=== PATIENT | female | born 1975 | race Caucasian/White ===

== ENCOUNTER 2020-08-13 07:48 | Outpatient (REF) | payer OTHER, SELFPAY ==
[2020-08-13 08:50] LABS: MANUAL DIFF FLAG NO
[2020-08-13 08:53] LABS: Basophils Absolute Auto 0.1 X10*3/uL (0.0-0.2); Basophils Percent Auto 0.6 % (0-2); Eosinophils Absolute Auto 0.3 X10*3/uL (0.0-0.4); Hematocrit 40.1 % (37-47); Hemoglobin 12.9 g/dl (12.0-16.0); Imm Gran Abs Auto 0.03 X10*3/uL (0.00-0.03); Imm Gran Pct Auto 0.4 % (0.0-0.4); Lymphocytes Absolute Auto 1.9 X10*3/uL (1.2-4.9); Lymphocytes Percent Auto 22.8 % (20-40); Mean Corpuscular HGB Conc 32.2 g/dl (31.0-35.0); Mean Corpuscular Volume 96.4 fL (80-98); Mean Platelet Volume 10.9 fL (9.4-12.3); Monocytes Absolute Auto 0.9 X10*3/uL (0.1-1.2); Monocytes Percent Auto 10.7 % (2-11); Neutrophils Absolute Auto 5.3 X10*3/uL (2.0-8.3); Neutrophils Percent Auto 62.5 % (45-73); Platelet Count 299 X10*3/uL (160-400); Red Blood Count 4.16 X10*6/uL (4.20-5.50); White Blood Count 8.5 X10*3/uL (4.8-10.8)
[2020-08-13 09:18] LABS: Anion Gap 11 (12-20); Blood Urea Nitrogen 8 mg/dL (9-16); Calcium 9.2 mg/dL (8.4-10.2); Carbon Dioxide 25 mmol/L (22-29); Chloride 105 mmol/L (96-108); Estimated Glomerular Filt Rate > 60; Glucose Random 91 mg/dL (60-115); Potassium 4.1 mmol/L (3.3-5.1); Sodium 137 mmol/L (135-145)
[2020-08-13 09:41] LABS: Free T4 (Free Thyroxine) 1.04 ng/dL (0.71-1.85); Thyroid Stimulating Hormone 0.93 uIU/mL (0.32-4.0); Vitamin D 25-OH Total 23.7 ng/mL (>30)
== END 2020-08-13 07:49 | disposition home or self-care (01) ==
LOC: HO.LAB 07:48
PROVIDERS: PCP Internal Medicine; Visit Provider Internal Medicine
DX: E55.9 Vitamin D deficiency, unspecified (principal); R63.5 Abnormal weight gain; F41.9 Anxiety disorder, unspecified
CPT/HCPCS: 36415; 80048; 82306; 84439; 84443; 85025

== ENCOUNTER 2020-11-14 09:08 | Outpatient (REF) | payer OTHER, SELFPAY ==
--- NOTE | ~2020-11-14 | MM_ITS ---
EXAMINATION: MM SCREENING DIGITAL BREAST TOMOSYNTHESIS, BILATERAL CLINICAL INFORMATION: Screening. Asymptomatic. The lifetime risk of breast cancer based on the Tyrer-Cuzick Model is 9%. COMPARISON: Mammography: 11/14/2019, 07/10/2018, 07/05/2018 (baseline) TECHNIQUE: Digital breast tomosynthesis is performed in both the craniocaudal and mediolateral oblique views along with computer-aided detection (CAD). Synthesized 2D images are generated from the tomosynthesis. FINDINGS: There are scattered areas of fibroglandular density (ACR BI-RADS breast composition Category b). There are no significant masses, abnormal calcifications, or other abnormalities. No developing density. The axilla and skin contours are unremarkable. MM/MM tomosynthesis screening BI IMPRESSION: No mammographic evidence of malignancy. ASSESSMENT: BI-RADS 1: Negative RECOMMENDATION: Routine annual mammography screening. This patient's information was entered into a reminder system with a target due date for their next mammogram.
== END 2020-11-14 09:09 | disposition home or self-care (01) ==
LOC: HO.MAMMO 09:08
PROVIDERS: PCP Internal Medicine; Visit Provider Internal Medicine
DX: Z12.31 Encounter for screening mammogram for malignant neoplasm of breast (principal)
CPT/HCPCS: 77063; 77067

== ENCOUNTER 2020-12-04 10:02 | Outpatient (REF) | payer OTHER, SELFPAY ==
[2020-12-04 14:09] LABS: Vitamin D 25-OH Total 27.5 ng/mL (>30)
== END 2020-12-04 10:03 | disposition home or self-care (01) ==
LOC: HO.10HDL 10:02
PROVIDERS: PCP Internal Medicine; Visit Provider Internal Medicine
DX: E55.9 Vitamin D deficiency, unspecified (principal)
CPT/HCPCS: 36415; 82306

== ENCOUNTER 2021-01-15 09:00 | Outpatient (REF) | payer OTHER, SELFPAY ==
[2021-01-15 15:25] LABS: CT PCR NOT DETECTED (Not Detect.); NG PCR NOT DETECTED (Not Detect.)
== END 2021-01-15 09:01 | disposition home or self-care (01) ==
LOC: HO.LAB 09:00
PROVIDERS: PCP Internal Medicine; Visit Provider Advanced Practice Midwife
DX: Z11.3 Encounter for screening for infections with a predominantly sexual mode of transmission (principal); Z20.2 Contact with and (suspected) exposure to infections with a predominantly sexual mode of transmission; F17.200 Nicotine dependence, unspecified, uncomplicated; Z71.6 Tobacco abuse counseling
CPT/HCPCS: 87491; 87591

== ENCOUNTER 2021-01-27 10:12 | Outpatient (REF) | payer OTHER, SELFPAY ==
--- NOTE | ~2021-01-27 | XR_ITS ---
EXAMINATION: XR LUMBOSACRAL SPINE CLINICAL INFORMATION: Low back pain. Rule out fracture. COMPARISON: Previous exam February 2013 TECHNIQUE: Three views of the lumbosacral spine. FINDINGS: Bone alignment is normal. No fracture or dislocation is seen. Disc spaces are normal. Paraspinal soft tissues are normal. XR/XR lumbar spine 2-3V IMPRESSION: Unremarkable examination.
== END 2021-01-27 10:13 | disposition home or self-care (01) ==
LOC: HO.XRAY 10:12
PROVIDERS: PCP Internal Medicine; Visit Provider Internal Medicine
DX: M54.50 Low back pain, unspecified (principal); Z91.81 History of falling
CPT/HCPCS: 72100

== ENCOUNTER 2021-04-23 11:00 | Outpatient (RCR) | payer OTHER, SELFPAY ==
--- NOTE | 2021-03-17 09:51 | MHC.PT.EP ---
[facility] [place] Office [place] Office [place] Office [address] Red Chiang [address] [phone] F: [phone] F: [phone] F: [phone] F: [phone] Physical Therapy Plan of Care Date of Evaluation: Date of Surgery: NA Diagnosis: L knee pain and giving out Assessment: Ronda is a 45 year old female referred to PT for L knee pain and giving out . Pt reports of having sudden onset of L knee pain following a fall about a month back. She denies any past history of knee pain. On examination she reports of having 7/10 pain in L knee, had decreased strength in L LE, presented with decreased length in L IT band, impaired posture and gait. Due to this pt has difficulty with walking, stair negotiation, prolonged standing and sitting. Pt cannot read and wrist. This could limit her prognosis. She would benefit from skilled PT to address the aforementioned impairment so as to enable return to PLOF. Frequency and Duration: The patient will be seen 2/week for 4 weeks Short Term Goals: 1. Pt will have 50% decrease in pain which will improve her tolerance to sitting and standing in 2 weeks 2. Pt's IT band length will return to normal limits which will improve tolerance to walking in 3 weeks. Detention Goals: 1. Pt will demonstrate an increase in strength by 1 grade which enable to her negotiate stairs with a pain no more than 2/10 in 4 weeks. 2. Pt will be independent with HEPs for symptom management and maintenance following d/c in 5 weeks. Treatment Plan: Modalities to reduce pain, spasms and effusion. Manual therapy to restore motion and function. Therapeutic exercise to improve strength and flexibility. Neuromuscular re-education for posture and balance. Therapeutic activities to return to functional activities of daily living. Electronically signed by: Lana Ospina PT DPT (03/17/21) Please sign and return to therapist. Thank you for your referral.
--- NOTE | 2021-06-03 14:28 | MHC.PT.DC ---
[facility] [place] [facility] [place] Office [place] Office [address] Red Chiang [address] [phone] F: [phone] F: [phone] F: [phone] F: [phone] Physical Therapy Discharge Report Diagnosis: L knee pain and giving out Date of Surgery: NA Date of Evaluation: 03/17/21 Date of Discharge: 06/03/21 Treatments to Date: 3 Cancellations to Date: 5 No Shows to Date: 3 Discharge Status: Visit Non-compliance Discharge Summary: Ronda did not attend her appointment consistently. She has had 5 cancels and 3 no shows. She is therefore being d/c from therapy for non compliance. Electronically signed by: Lana Ospina PT DPT Please sign and return to therapist. Thank you for your referral.
== END 2021-06-03 14:27 | disposition home or self-care (01) ==
LOC: HO.PT 11:00
PROVIDERS: PCP Internal Medicine; Visit Provider Internal Medicine
DX: M25.562 Pain in left knee (principal)
CPT/HCPCS: 97110; 97140; 97161

== ENCOUNTER 2021-05-18 13:16 | Outpatient (REF) | payer OTHER, SELFPAY ==
[2021-05-18 13:50] LABS: COVID-19 Test Negative (Negative); IDNOW Serial# 9DD0AD1C
== END 2021-05-18 13:17 | disposition home or self-care (01) ==
LOC: HO.LNP 13:16
PROVIDERS: Visit Provider Internal Medicine
DX: Z20.822 Contact with and (suspected) exposure to COVID-19 (principal)
CPT/HCPCS: 87635

== ENCOUNTER 2022-03-29 14:36 | Outpatient (REF) | payer OTHER, SELFPAY ==
[2022-03-29 14:46] LABS: MANUAL DIFF FLAG NO
[2022-03-29 15:17] LABS: Basophils Absolute Auto 0.1 X10*3/uL (0.0-0.2); Basophils Percent Auto 0.5 % (0-2); Eosinophils Absolute Auto 0.3 X10*3/uL (0.0-0.4); Eosinophils Percent Auto 1.9 % (0-4); Hematocrit 40.2 % (37.0-47.0); Hemoglobin 13.1 g/dl (12.0-16.0); Imm Gran Abs Auto 0.06 X10*3/uL (0.00-0.03); Imm Gran Pct Auto 0.4 % (0.0-0.4); Lymphocytes Absolute Auto 2.9 X10*3/uL (1.2-4.9); Lymphocytes Percent Auto 21.5 % (20-40); Mean Corpuscular HGB Conc 32.6 g/dl (31.0-35.0); Mean Corpuscular Hemoglobin 30.4 pg (27.0-33.0); Mean Corpuscular Volume 93.3 fL (80.0-98.0); Mean Platelet Volume 10.9 fL (9.4-12.3); Monocytes Absolute Auto 1.2 X10*3/uL (0.1-1.2); Monocytes Percent Auto 9.2 % (2-11); Neutrophils Percent Auto 66.5 % (45-73); Platelet Count 362 X10*3/uL (160-400); Red Blood Count 4.31 X10*6/uL (4.20-5.50); Red Cell Distribution Width 12.9 % (11.0-16.0); White Blood Count 13.5 X10*3/uL (4.8-10.8)
[2022-03-29 16:13] LABS: Alanine Aminotransferase 18 U/L (0-31); Alkaline Phosphatase 116 U/L (39-117); Anion Gap 12 (12-20); Aspartate Amino Transferase 15 U/L (5-31); Bilirubin Total 0.5 mg/dL (0.0-1.0); Blood Urea Nitrogen 8 mg/dL (9-16); Calcium 9.3 mg/dL (8.4-10.2); Carbon Dioxide 25 mmol/L (22-29); Chloride 107 mmol/L (96-108); Cholesterol 141 mg/dL; Estimated Glomerular Filt Rate > 60; Glucose Random 93 mg/dL (60-115); Potassium 4.2 mmol/L (3.3-5.1); Sodium 140 mmol/L (135-145); Total Protein 6.9 g/dL (6.5-8.0); Vitamin D 25-OH Total 24.6 ng/mL (>30)
== END 2022-03-29 14:37 | disposition home or self-care (01) ==
LOC: HO.LAB 14:36
PROVIDERS: PCP Internal Medicine; Visit Provider Internal Medicine
DX: E55.9 Vitamin D deficiency, unspecified (principal); M54.9 Dorsalgia, unspecified
CPT/HCPCS: 36415; 80053; 82306; 82465; 85025

== ENCOUNTER 2023-04-26 11:13 | Outpatient (REF) | payer OTHER, SELFPAY ==
[2023-04-26 13:24] LABS: MANUAL DIFF FLAG NO
[2023-04-26 13:31] LABS: Basophils Absolute Auto 0.1 X10*3/uL (0.0-0.2); Basophils Percent Auto 0.8 % (0-2); Eosinophils Absolute Auto 0.2 X10*3/uL (0.0-0.4); Eosinophils Percent Auto 1.7 % (0-4); Hematocrit 40.5 % (37.0-47.0); Hemoglobin 13.4 g/dl (12.0-16.0); Imm Gran Abs Auto 0.03 X10*3/uL (0.00-0.03); Imm Gran Pct Auto 0.3 % (0.0-0.4); Lymphocytes Absolute Auto 2.5 X10*3/uL (1.2-4.9); Lymphocytes Percent Auto 24.4 % (20-40); Mean Corpuscular HGB Conc 33.1 g/dl (31.0-35.0); Mean Corpuscular Hemoglobin 30.7 pg (27.0-33.0); Mean Corpuscular Volume 92.9 fL (80.0-98.0); Mean Platelet Volume 11.2 fL (9.4-12.3); Monocytes Percent Auto 9.2 % (2-11); Neutrophils Absolute Auto 6.6 x10*3/uL (2.0-8.3); Neutrophils Percent Auto 63.6 % (45-73); Platelet Count 310 X10*3/uL (160-400); Red Blood Count 4.36 X10*6/uL (4.20-5.50); Red Cell Distribution Width 12.5 % (11.0-16.0); White Blood Count 10.3 X10*3/uL (4.8-10.8)
[2023-04-26 13:48] LABS: Alanine Aminotransferase 16 U/L (0-31); Albumin Level 4.1 g/dL (3.5-5.0); Alkaline Phosphatase 109 U/L (39-117); Anion Gap 13 (12-20); Aspartate Amino Transferase 17 U/L (5-31); Bilirubin Total 0.5 mg/dL (0.0-1.0); Blood Urea Nitrogen 6 mg/dL (9-16); Calcium 9.6 mg/dL (8.4-10.2); Carbon Dioxide 24 mmol/L (22-29); Chloride 106 mmol/L (96-108); Cholesterol 131 mg/dL (<200); Estimated Glomerular Filt Rate > 60; Glucose Random 79 mg/dL (60-115); Potassium 4.8 mmol/L (3.3-5.1); Sodium 138 mmol/L (135-145); Total Protein 7.4 g/dL (6.5-8.0)
[2023-04-26 14:04] LABS: Vitamin D 25-OH Total 31.5 ng/mL (>30)
== END 2023-04-26 11:14 | disposition home or self-care (01) ==
LOC: HO.10HDL 11:13
PROVIDERS: Visit Provider Internal Medicine
DX: M85.80 Other specified disorders of bone density and structure, unspecified site (principal); E55.9 Vitamin D deficiency, unspecified; M25.562 Pain in left knee
CPT/HCPCS: 36415; 80053; 82306; 82465; 85025

== ENCOUNTER 2023-10-10 10:42 | Outpatient (REF) | payer OTHER, SELFPAY ==
[2023-10-10 13:14] LABS: MANUAL DIFF FLAG NO
[2023-10-10 13:38] LABS: Basophils Absolute Auto 0.1 X10*3/uL (0.0-0.2); Basophils Percent Auto 0.8 % (0-2); Eosinophils Absolute Auto 0.3 X10*3/uL (0.0-0.4); Eosinophils Percent Auto 3.1 % (0-4); Hematocrit 40.7 % (37.0-47.0); Hemoglobin 13.3 g/dl (12.0-16.0); Imm Gran Abs Auto 0.04 X10*3/uL (0.00-0.03); Imm Gran Pct Auto 0.4 % (0.0-0.4); Lymphocytes Absolute Auto 2.5 X10*3/uL (1.2-4.9); Lymphocytes Percent Auto 23.5 % (20-40); Mean Corpuscular HGB Conc 32.7 g/dl (31.0-35.0); Mean Corpuscular Hemoglobin 30.8 pg (27.0-33.0); Mean Corpuscular Volume 94.2 fL (80.0-98.0); Mean Platelet Volume 11.1 fL (9.4-12.3); Monocytes Absolute Auto 0.9 X10*3/uL (0.1-1.2); Monocytes Percent Auto 8.7 % (2-11); Neutrophils Absolute Auto 6.9 x10*3/uL (2.0-8.3); Neutrophils Percent Auto 63.5 % (45-73); Platelet Count 316 X10*3/uL (160-400); Red Blood Count 4.32 X10*6/uL (4.20-5.50); Red Cell Distribution Width 12.9 % (11.0-16.0); White Blood Count 10.8 X10*3/uL (4.8-10.8)
[2023-10-10 13:52] LABS: Estimated Average Glucose 97 mg/dL
[2023-10-10 13:58] LABS: Alanine Aminotransferase 25 U/L (0-31); Alkaline Phosphatase 130 U/L (39-117); Anion Gap 12 (12-20); Aspartate Amino Transferase 23 U/L (5-31); Bilirubin Total 0.4 mg/dL (0.0-1.0); Blood Urea Nitrogen 11 mg/dL (9-16); Calcium 9.4 mg/dL (8.4-10.2); Carbon Dioxide 24 mmol/L (22-29); Chloride 106 mmol/L (96-108); Estimated Glomerular Filt Rate > 60; Glucose Random 83 mg/dL (60-115); Potassium 4.5 mmol/L (3.3-5.1); Sodium 137 mmol/L (135-145); Total Protein 7.3 g/dL (6.5-8.0)
[2023-10-10 14:17] LABS: Thyroid Stimulating Hormone 2.02 uIU/mL (0.32-4.0); Vitamin D 25-OH Total 30.4 ng/mL (>30)
== END 2023-10-10 10:43 | disposition home or self-care (01) ==
LOC: HO.10HDL 10:42
PROVIDERS: Visit Provider Internal Medicine
DX: E55.9 Vitamin D deficiency, unspecified (principal); R63.5 Abnormal weight gain
CPT/HCPCS: 36415; 80053; 82306; 83036; 84439; 84443; 85025

== ENCOUNTER 2024-03-30 12:01 | Outpatient (REF) | payer OTHER, SELFPAY ==
[2024-03-30 12:29] LABS: MANUAL DIFF FLAG NO
[2024-03-30 13:24] LABS: Basophils Absolute Auto 0.1 X10*3/uL (0.0-0.2); Basophils Percent Auto 0.7 % (0-2); Eosinophils Absolute Auto 0.4 X10*3/uL (0.0-0.4); Eosinophils Percent Auto 3.6 % (0-4); Hematocrit 39.6 % (37.0-47.0); Hemoglobin 13.3 g/dl (12.0-16.0); Imm Gran Abs Auto 0.06 X10*3/uL (0.00-0.03); Imm Gran Pct Auto 0.6 % (0.0-0.4); Mean Corpuscular HGB Conc 33.6 g/dl (31.0-35.0); Mean Corpuscular Hemoglobin 31.4 pg (27.0-33.0); Mean Corpuscular Volume 93.4 fL (80.0-98.0); Mean Platelet Volume 10.9 fL (9.4-12.3); Monocytes Percent Auto 9.4 % (2-11); Neutrophils Absolute Auto 5.8 x10*3/uL (2.0-8.3); Neutrophils Percent Auto 56.7 % (45-73); Platelet Count 317 X10*3/uL (160-400); Red Blood Count 4.24 X10*6/uL (4.20-5.50); Red Cell Distribution Width 12.3 % (11.0-16.0); White Blood Count 10.2 X10*3/uL (4.8-10.8)
[2024-03-30 14:04] LABS: Alanine Aminotransferase 23 U/L (0-31); Albumin Level 3.8 g/dL (3.5-5.0); Alkaline Phosphatase 122 U/L (39-117); Anion Gap 10 (12-20); Aspartate Amino Transferase 23 U/L (5-31); Bilirubin Total 0.4 mg/dL (0.0-1.0); Blood Urea Nitrogen 7 mg/dL (9-16); Calcium 9.4 mg/dL (8.4-10.2); Carbon Dioxide 26 mmol/L (22-29); Chloride 106 mmol/L (96-108); Cholesterol 147 mg/dL (<200); Estimated Glomerular Filt Rate > 60; Glucose Random 83 mg/dL (60-115); Potassium 3.9 mmol/L (3.3-5.1); Sodium 138 mmol/L (135-145)
[2024-03-30 14:11] LABS: Thyroid Stimulating Hormone 2.18 uIU/mL (0.32-4.0); Vitamin D 25-OH Total 29.3 ng/mL (>30)
== END 2024-03-30 12:02 | disposition home or self-care (01) ==
LOC: HO.LAB 12:01
PROVIDERS: PCP Internal Medicine; Visit Provider Internal Medicine
DX: E55.9 Vitamin D deficiency, unspecified (principal)
CPT/HCPCS: 36415; 80053; 82306; 82465; 84443; 85025

== ENCOUNTER 2024-06-06 13:23 | Outpatient (AMB) | payer OTHER, SELFPAY ==
--- NOTE | 2024-06-06 13:27 | A.OFFVIS_ITS ---
Vital Signs 06/06/24 13:30 Height 4 ft 10 in Weight 208 lb BMI 43.5 BP 120/68 Intake Visit Reasons: Annual Instrumentation Supervisor Required: No Instrumentation Supervisor Services: Instrumentation Supervisor Present Information Interpreted: clinical only Service Crew Leader: Service Crew Leader Present Allergies egg [EGG] Allergy (Unknown, Verified 06/06/24 13:33) VOMITTING Penicillins [PENICILLINS] Allergy (Unknown, Verified 06/06/24 13:33) RASH Medication List - Last Reconciled 06/06/24 by Lissa Scott CNM buspirone 10 mg PO BID cholecalciferol (vitamin D3) 25 mcg PO DAILY fluticasone propionate 50 mcg/actuation 1 spray intranasal BID loratadine 10 mg PO DAILY paroxetine HCl 10 mg PO DAILY valacyclovir mg PO Is last menstrual period known: Yes Last menstrual period: 05/14/24 HPI HPI Annual: Details: Patient is here for new cps team lead exam she previously has been seen by providers in this practice but not since 2020. She does not think she has ever had a mammogram since possibly 2018. She says her primary doctors Dr. Bhakta and she just saw on the few weeks ago. She does not remember if he ordered 1. She remembers talking to him about bowel issues but she is not really sure about referrals for that and she was confused about mixing up this visit with other health concerns. She says she has not had a period for 5 months she had a tubal ligation so she does not have to worry about she would be just as happy if her periods never came back she says her mother went through menopause in her 40s. She however was surprised to think that maybe she is going to menopause she does not get hot flashes. She says Dr. Bhakta did not talked to her about any other health issues that she recalls. She says she had got what ever blood test she had to get done done. [facility] Medical History Smoking Seasonal allergies Herpes History of anxiety Surgical History Hx of tubal ligation Family History Family/Other History of breast cancer Maternal Aunt Breast cancer Social History Household Members: Children Household Members Other:: living with 1 son Alcohol intake: never Patient Tobacco Use Status: Current someday Tobacco user Sexual orientation: Straight/Heterosexual Gender identity: Female Female Reproductive History Menstrual Age of Menarche: 17 Duration of menses: 3-5 days Date of last menstrual period: 05/14/24 control method: permanent sterilization Total pregnancies: 4 Full term: 4 Date of last pap smear: 05/24/18 (negative,per patient) History of abnormal pap smear: No Date of Mammogram: 11/14/20 (negative) Physical Exam Vital Signs: Last Vital Signs BP 120/68 06/06/24 13:30 BMI result Body Mass Index 43.5 Const General: healthy appearing, comfortable, no acute distress, well developed and alert Nutritional Appearance: average body habitus and obese Orientation/consciousness: patient oriented x3 Limitations: no limitations HEENT Head: Yes normocephalic Throat: Yes other (Appears to be missing lower teeth.) Neck Neck: Yes normal visual inspection Chest Chest palpation & inspection: normal inspection of the chest Breast/axilla inspection: normal inspection of the breasts and normal inspection of the axillae Breast/axilla palpation: normal palpation of the breasts and normal palpation of the axillae Resp Effort & Inspection: normal respiratory effort GI Inspection: Yes normal to inspection, No Abdominal wall edema and No distended Palpation (GI): Soft to palpation and nontender Other: External exam within normal limits vagina is pink and moist cervix multiparous pink smooth healthy appearing with clear mucus not abundant. Cervix and uterus midposition mobile nontender do not feel enlarged adnexa not enlarged nontender patient does have good tone with Kegel. General: Yes bladder normal to palpation External Female Exam: normal external appearance and normal appearance of the urethra Speculum Exam - Vagina: normal appearance of the vagina, normal palpation and normal vaginal discharge Speculum Exam - Cervix: normal appearance of the cervix, normal palpation and nontender Bimanual exam- vagina & uterus: normal bimanual exam, normal palpation, uterine size normal, bladder normal to palpation, consistency normal, normal palpation, uterine mobility normal, uterine shape normal, No Cervical tenderness present, non-tender and no cervical motion tenderness Bimanual Exam- Adnexa, other: normal adnexae, no masses, normal and No adnexal tenderness Neuro General: patient oriented x3 Assessment & Plan Assessment & Plan (1) Encounter for annual routine gynecological examination: Code(s): Z01.419 - Encounter for gynecological examination (general) (routine) without abnormal findings Category: Medical (2) Breast cancer screening: Code(s): Z12.39 - Encounter for other screening for malignant neoplasm of breast Category: Medical (3) Cervical cancer screening: Code(s): Z12.4 - Encounter for screening for malignant neoplasm of cervix Category: Medical (4) Encounter for screening examination for sexually transmitted disease: Code(s): Z11.3 - Encounter for screening for infections with a predominantly sexual mode of transmission Category: Medical (5) Perimenopause: Code(s): N95.1 - Menopausal and female climacteric states Category: Medical Plan -----Discussed in this visit the following: healthy balanced diet, regular and consistent exercise, getting recommended health screens, doing the best she can for her particular health concerns, kegel exercises, pap smear screening and followup recommendations, mammography screening and SBE, normal changes in cycles in her life stage--- Reviewed what I did during the exam today and explained why we do different parts of the exam and what would checking for with the pelvic exam. .---Discussed normal changes that happen premenapausally, perimenapausally, and postmenopausally, and ways to handle them. Discussed the normal variation, and the range of experiences that women experience. Discussed nutrition, health, need for exercise, both weight-bearing and aerobic. Also discussed the normal changes that happen with vaginal mucosal thinning and sensitivity, and simple more natural ways of handling these challenges. I was unable to see any orders that might of been placed by her primary care provider so I am going had an ordering a mammogram though it may have already been ordered by him. Discussed yearly mammograms. If this Pap smear is negative she would not need another 1 for 5 years but we will see her every year she says she has had her period every time she was sched uled for an appointment Discussed that she may be starting menopause but it is also possible she may get another menstrual period. Discussed that she might want to follow-up with her primary care provider about other healthcare issues. She says she makes her own appointments and things but she does have a worker that helps her with some other things and sometimes there can be some confusion and she forgets what different visits are for. By the end of the visit she thinks that she has met this provider before she had a baby through this practice in 2004 at [facility]. She says her babies now all her babies. mammograms rtc 1 yr Orders: Orders MM tomosynthesis screening BI Today Z01.419 - Encounter for gynecological examination (general) (routine) without abnormal findings, Z12.31 - Encounter for screening mammogram for malignant neoplasm of breast Coding Level of Care Code New Pt Prev Care 40-64y(04585) Diagnoses Encounter for annual routine gynecological examination Z01.419 Breast cancer screening Z12.39 Cervical cancer screening Z12.4 Encounter for screening examination for sexually transmitted disease Z11.3 Perimenopause N95.1
[2024-06-06 13:30] VITALS: BP 120/68; BMI 43.5
== END 2024-06-06 14:55 | disposition home or self-care (01) ==
LOC: HO.HWSM 13:23
PROVIDERS: PCP Internal Medicine; Visit Provider Advanced Practice Midwife
DX: Z01.419 Encounter for gynecological examination (general) (routine) without abnormal findings (principal); N95.1 Menopausal and female climacteric states
CPT/HCPCS: 99386; 99459

== ENCOUNTER 2024-06-06 13:23 | Outpatient (REF) | payer OTHER, SELFPAY ==
[2024-06-13 14:44] LABS: HPV Genotype 16 Negative (Negative); HPV Genotype 18 Negative (Negative); HPV High Risk Negative (Negative)
== END 2024-06-06 13:24 | disposition home or self-care (01) ==
LOC: HO.LNP 13:23
PROVIDERS: PCP Internal Medicine; Visit Provider Advanced Practice Midwife
DX: Z01.419 Encounter for gynecological examination (general) (routine) without abnormal findings (principal); Z11.3 Encounter for screening for infections with a predominantly sexual mode of transmission; N95.1 Menopausal and female climacteric states
CPT/HCPCS: 87626; 88175; 99386; 99459

== ENCOUNTER 2024-06-06 14:43 | Outpatient (REF) | payer OTHER, SELFPAY ==
[2024-06-07 07:25] LABS: CT PCR NOT DETECTED (Not Detect.); NG PCR NOT DETECTED (Not Detect.)
[2024-06-07 13:31] LABS: Bacterial Vaginosis PCR POSITIVE (Negative); Candida Group PCR NOT DETECTED (Not Detect); Candida glab krusei PCR NOT DETECTED (Not Detect); Trichomonas vaginalis PCR NOT DETECTED (Not Detect)
== END 2024-06-06 14:44 | disposition home or self-care (01) ==
LOC: HO.LAB 14:43
PROVIDERS: Visit Provider Advanced Practice Midwife
DX: Z00.00 Encounter for general adult medical examination without abnormal findings (principal); N89.8 Other specified noninflammatory disorders of vagina; Z20.2 Contact with and (suspected) exposure to infections with a predominantly sexual mode of transmission
CPT/HCPCS: 81515; 87491; 87591

== ENCOUNTER 2024-07-16 12:59 | Outpatient (REF) | payer OTHER, SELFPAY | END 2024-07-16 13:00 | disposition home or self-care (01) | LOC: HO.MAMMO 12:59 | PROVIDERS: PCP Internal Medicine; Visit Provider Internal Medicine | DX: Z12.31 Encounter for screening mammogram for malignant neoplasm of breast (principal) | CPT/HCPCS: 77063; 77067 ==

== ENCOUNTER → 2024-07-16 13:15 | Outpatient (BNV) | payer OTHER, SELFPAY | PROVIDERS: PCP Internal Medicine; Visit Provider Internal Medicine | DX: Z12.31 Encounter for screening mammogram for malignant neoplasm of breast (principal) | CPT/HCPCS: 77063; 77067 ==

== ENCOUNTER 2024-08-04 09:03 | Outpatient (AMB) | payer OTHER, SELFPAY ==
--- NOTE | 2024-08-04 09:10 | AM.OFFWIN_ITS ---
Intake Vital Signs 08/04/24 09:14 Height 4 ft 10 in Weight 208 lb BMI 43.5 BP 118/70 Blood Pressure Location Rt brachial Position Sitting Pulse 62 Pulse Source Pulse Oximeter Temp 97.8 F Temp Source Oral Pulse Oximetry (%) 99 Oxygen Delivery Method Room Air Intake Visit Reasons: EP Pain in Patient Tobacco Use Status: Current someday Tobacco user Allergies egg [EGG] Allergy (Unknown, Verified 08/04/24 09:15) VOMITTING Penicillins [PENICILLINS] Allergy (Unknown, Verified 08/04/24 09:15) RASH HPI HPI Comments History of Present Illness Details Bozena presents with wrist pain that is limiting her mobility. She reports being unable to bend or move her wrist without experiencing pain. The patient states she cannot pull down her pants due to the discomfort. The pain is localized to the wrist area, specifically right here as indicated by the patient. There is no reported history of trauma, falls, or trips. The onset of pain appears to be associated with picking up her baby, who is described as getting a little heavy. Bozena denies any numbness or tingling in the affected area. She also denies any fever, chills, cough, congestion, or other symptoms. The patient has no history of gout or arthritis. The wrist pain is impacting Bozena's daily functioning, particularly her ability to care for her baby and perform basic tasks like dressing herself. No specific aggravating or alleviating factors were mentioned beyond the act of picking up her baby. [facility] Medical History Smoking Seasonal allergies Herpes History of anxiety Surgical History Hx of tubal ligation Family History Family/Other History of breast cancer Maternal Aunt Breast cancer Social History Household Members: Children Household Members Other:: living with 1 son Alcohol intake: never Patient Tobacco Use Status: Current someday Tobacco user Sexual orientation: Straight/Heterosexual Gender identity: Female Female Reproductive History Menstrual Age of Menarche: 17 Review of Systems Const Denies fatigue and Denies fever(s) Musc Details: L wrist pain Reports arthralgias and Denies joint swelling Endo Denies fatigue Physical Exam Vital Signs: Last Vital Signs Temp 97.8 F 08/04/24 09:14 Pulse 62 08/04/24 09:14 BP 118/70 08/04/24 09:14 Pulse Ox 99 08/04/24 09:14 Oxygen Delivery Method Room Air 08/04/24 09:14 BMI result Body Mass Index 43.5 Const General: cooperative, healthy appearing, no acute distress and alert Orientation/consciousness: patient oriented x3 Limitations: no limitations HEENT Head: Yes normal to inspection Ears: hearing grossly normal bilaterally General nose exam: Normal external nose present Resp Effort & Inspection: normal respiratory effort and able to speak in complete sentences Cardio Rate: regular rate Skin General skin exam: no rashes or lesions noted Neuro General: patient oriented x3 Extrem Other: + Gary test, sensation intact range of motion intact of the left thumb and wrist General: Yes normal to inspection Assessment & Plan Assessment & Plan (1) Left wrist pain: Code(s): M25.532 - Pain in left wrist Plan: Suspect De Quervain's Tenosynovitis: - Patient presents with wrist pain and inability to bend or move the wrist without pain - Reports lifting her baby, who is getting a little heavy - Denies any falls or trauma - Physical examination reveals tenderness along the tendon - Condition is common in caretakers of children and babies due to repetitive lifting and carrying - No numbness, tingling, or fever reported - No history of gout or arthritis mentioned Plan: - Wrist splinting recommended for an unspecified duration - No X-ray ordered due to absence of trauma - Follow up after a period of splint use to assess improvement Coding Level of Care Code Est Pt Level 4 (88302) Diagnoses Left wrist pain M25.532
[2024-08-04 09:14] VITALS: BP 118/70; PULSE 62; TEMP 36.6; O2SAT 99; BMI 43.5
== END 2024-08-04 09:39 | disposition home or self-care (01) ==
PROVIDERS: PCP Internal Medicine; Visit Provider Physician Assistant
DX: M25.532 Pain in left wrist (principal)

== ENCOUNTER → 2024-08-04 09:03 | Outpatient (BNVA) | payer OTHER, SELFPAY | PROVIDERS: PCP Internal Medicine | DX: M25.532 Pain in left wrist (principal) | CPT/HCPCS: 99212 ==

== ENCOUNTER 2024-09-18 09:07 | Outpatient (AMB) | payer OTHER, SELFPAY ==
--- NOTE | 2024-09-18 09:14 | MHC.PC.OV ---
Vital Signs 09/18/24 09:18 Height 4 ft 10 in Weight 96.162 kg BMI 44.3 BP 122/88 Respiration 14 Pulse 67 Pulse Source Pulse Oximeter Temp 97.9 F Temp Source Temporal Artery Scan Pulse Oximetry (%) 97 Oxygen Delivery Method Room Air Intake Visit Reasons: Routine Aromatherapist Required: No Accompanied by: Other Relationship Allergies egg [EGG] Allergy (Unknown, Verified 09/18/24 09:14) VOMITTING Penicillins [PENICILLINS] Allergy (Unknown, Verified 09/18/24 09:14) RASH Medication List - Last Reconciled 09/18/24 by ADRYAN Arellano bupropion HCl SR 150 mg PO BID buspirone 10 mg PO BID cholecalciferol (vitamin D3) 25 mcg PO DAILY ibuprofen 600 mg PO Q6H PRN loratadine 10 mg PO DAILY metronidazole 0.75%(37.5mg/5gram) 1 appful vaginal BEDTIME 5 days paroxetine HCl 10 mg PO DAILY valacyclovir Take one tab oral once daily. Take 4 tab oral twice daily NEEDED for one day for herpes break out HPI HPI Comments History of Present Illness Details 48-year-old female with history of cerebellar pontine atrophy, major depressive disorder with anxiety, HSV 1, and class 3 obesity presents to the office today accompanied by N worker, Adenike, for management of chronic conditions and to establish care. She has several complaints today. She reports she has recurrent episodes of inflammation and purulence of the right middle fingernail. She has required antibiotics for this in the past. She does endorse picking at her fingernails often. She also states that she does not typically finish the antibiotic course that has been prescribed. She is also reporting pain over the radial aspect of the left wrist into the thumb. States this worsens when lifting grocery bags. No swelling or erythema. Her [facility] worker states that she has felt like her skin has been yellowish. The patient denies any right upper quadrant pain, nausea, vomiting no bleeding. No known history of liver disease. Major depressive disorder with anxiety-following with and. PHQ-9 score in the office today as 6, mild depression. No SI/HI. Compliant with bupropion, BuSpar, paroxetine. Overall, reports symptoms are well managed. HSV-1 - no recent outbreak. Has valtrex PRN Class III obesity- not actively working on weight loss General: No fevers, malaise, unintentional weight loss Cardiovascular: No chest pain, palpitations, or leg edema Respiratory: No shortness of breath, wheezing, cough GI: No abdominal pain, nausea, vomiting. see hpi MSK: see hpi Neuro: No headaches, weakness, paresthesias Skin: see hpi Constitutional - Awake and Alert, No apparent distress Eyes - PERRLA, EOMI Cardiovascular - S1S2, RRR, No edema Respiratory - Normal lung expansion, Normal respiratory effort, No respiratory distress, CTA bilaterally Gastrointestinal - NT / ND; +BS; No rebound or guarding Extremities - no calf tenderness bilaterally, no swelling Musculoskeletal - no bony abnormalities. No swelling, erythema, warmth. Tenderness to palpation along the radial aspect of the left wrist. Positive Gary test. Full ROM L thumb and wrist Skin - Warm/Dry Neurological - Alert & oriented x3 Psychological - Appropriate affect [facility] Medical History (Updated 09/18/24 @ 09:44 by ADRYAN Arellano) Low vitamin D level Major depressive disorder HSV-1 (herpes simplex virus 1) infection Smoking Seasonal allergies Herpes History of anxiety Surgical History Hx of tubal ligation Family History Family/Other History of breast cancer Maternal Aunt Breast cancer Social History Household Members: Children Household Members Other:: living with 1 son Alcohol intake: never Patient Tobacco Use Status: Current someday Tobacco user Sexual orientation: Straight/Heterosexual Gender identity: Female Female Reproductive History Menstrual Age of Menarche: 17 Physical exam (Primary Care) Vital Signs: Last Vital Signs Temp 97.9 F 09/18/24 09:18 Pulse 67 09/18/24 09:18 Resp 14 09/18/24 09:18 BP 122/88 09/18/24 09:18 Pulse Ox 97 09/18/24 09:18 Oxygen Delivery Method Room Air 09/18/24 09:18 BMI result Body Mass Index 44.3 Tobacco/Smoking Status: Tobacco use Status Patient Tobacco Use Status Current someday Tobacco 09/18/24 09:20 Coding Level of Care Code New Pt Level 4 (18581) Complex EM visit Add On G2211 Diagnoses HSV-1 (herpes simplex virus 1) infection B00.9 Major depressive disorder F32.9 Paronychia of finger L03.019 De Quervain's tenosynovitis, left M65.4 Assessment & Plan Assessment & Plan (1) HSV-1 (herpes simplex virus 1) infection: Code(s): B00.9 - Herpesviral infection, unspecified Category: Medical Plan: In remission. Continue valtrex for prevention. Use valtrex 2 tabs x 1 day as needed for acute flare (2) Major depressive disorder: Code(s): F32.9 - Major depressive disorder, single episode, unspecified Category: Medical Plan: PHQ-9 6, mild symptoms. No alarm symptoms. Continue following with [facility] for psychiatric care. Continue bupropion 150 mg b.i.d., BuSpar 10 mg b.i.d., paroxetine 10 mg daily. (3) Paronychia of finger: Code(s): L03.019 - Cellulitis of unspecified finger Category: Medical Plan: Recurrent, however patient is not taking her antibiotic as prescribed. Bactrim DS prescribed x5 days. Counseled on the importance of completing antibiotic course. Also recommend warm soaks. Counseled on avoidance of picking at skin around the nails. Wash hands often (4) De Quervain's tenosynovitis, left: Code(s): M65.4 - Radial styloid tenosynovitis [de Quervain] Category: Medical Plan: Anti-inflammatory medications recommended. Prescribed ibuprofen 600 mg q.6h as needed. She is also given a thumb spica splint to wear as needed for pain and inflammation. Recommend alternating wrist/arms when lifting grocery years or children. Plan Follow-up in 6 months for annual physical exam. Labs to be completed following visit today. She is referred to Gastroenterology for screening colonoscopy. Orders: Orders Complete Blood Count Auto Diff Today B00.9 - Herpesviral infection, unspecified, F32.9 - Major depressive disorder, single episode, unspecified, L03.019 - Cellulitis of unspecified finger Lipid Panel Today B00.9 - Herpesviral infection, unspecified, F32.9 - Major depressive disorder, single episode, unspecified, L03.019 - Cellulitis of unspecified finger Basic Metabolic Panel Today B00.9 - Herpesviral infection, unspecified, F32.9 - Major depressive disorder, single episode, unspecified, L03.019 - Cellulitis of unspecified finger Liver Panel Today B00.9 - Herpesviral infection, unspecified, F32.9 - Major depressive disorder, single episode, unspecified, L03.019 - Cellulitis of unspecified finger Referrals Gastroenterology Referral Z13.220 - Encounter for screening for lipoid disorders Medications: New ibuprofen 600 mg PO Q6H PRN 60 tabs 0RF pain sulfamethoxazole-trimethoprim 800-160 mg 1 tab PO Q12H 10 tabs 0RF Brace,wrist (Wrist Brace - one) L thumb spica- use as needed for L wrist pain 1 ea 0RF bupropion HCl SR 150 mg PO BID 180 tabs 1RF buspirone 10 mg PO BID 180 tabs 1RF paroxetine HCl 10 mg PO DAILY 180 tabs 1RF Refilled valacyclovir Take one tab oral once daily. Take 4 tab oral twice daily NEEDED for one day for herpes break out 100 tabs 1RF
[2024-09-18 09:18] VITALS: BP 122/88; PULSE 67; RESP 14; TEMP 36.6; O2SAT 97; BMI 44.3
== END 2024-09-18 09:43 | disposition home or self-care (01) ==
LOC: HO.HMCHD 09:07
PROVIDERS: PCP Internal Medicine; Visit Provider Physician Assistant
DX: B00.9 Herpesviral infection, unspecified (principal); F32.9 Major depressive disorder, single episode, unspecified; L03.019 Cellulitis of unspecified finger; M65.4 Radial styloid tenosynovitis [de Quervain]

== ENCOUNTER → 2024-09-18 09:07 | Outpatient (BNVA) | payer OTHER, SELFPAY | PROVIDERS: PCP Internal Medicine; Visit Provider Physician Assistant | DX: B00.9 Herpesviral infection, unspecified (principal); F32.9 Major depressive disorder, single episode, unspecified; L03.019 Cellulitis of unspecified finger; M65.4 Radial styloid tenosynovitis [de Quervain]; Z79.899 Other long term (current) drug therapy | CPT/HCPCS: 99202 ==

== ENCOUNTER 2024-09-18 10:09 | Outpatient (REF) | payer OTHER, SELFPAY ==
[2024-09-18 13:05] LABS: MANUAL DIFF FLAG NO
[2024-09-18 13:12] LABS: Basophils Absolute Auto 0.1 X10*3/uL (0.0-0.2); Basophils Percent Auto 0.9 % (0-2); Eosinophils Absolute Auto 0.3 X10*3/uL (0.0-0.4); Hematocrit 39.9 % (37.0-47.0); Hemoglobin 13.2 g/dl (12.0-16.0); Imm Gran Abs Auto 0.05 X10*3/uL (0.00-0.03); Imm Gran Pct Auto 0.5 % (0.0-0.4); Lymphocytes Absolute Auto 2.5 X10*3/uL (1.2-4.9); Lymphocytes Percent Auto 25.4 % (20-40); Mean Corpuscular HGB Conc 33.1 g/dl (31.0-35.0); Mean Corpuscular Hemoglobin 30.6 pg (27.0-33.0); Mean Corpuscular Volume 92.6 fL (80.0-98.0); Mean Platelet Volume 10.9 fL (9.4-12.3); Monocytes Absolute Auto 0.8 X10*3/uL (0.1-1.2); Monocytes Percent Auto 8.5 % (2-11); Neutrophils Absolute Auto 6.1 x10*3/uL (2.0-8.3); Neutrophils Percent Auto 61.7 % (45-73); Platelet Count 301 X10*3/uL (160-400); Red Blood Count 4.31 X10*6/uL (4.20-5.50); Red Cell Distribution Width 12.9 % (11.0-16.0); White Blood Count 9.8 X10*3/uL (4.8-10.8)
[2024-09-18 13:27] LABS: Alanine Aminotransferase 36 U/L (0-31); Alkaline Phosphatase 138 U/L (39-117); Anion Gap 11 (12-20); Aspartate Amino Transferase 33 U/L (5-31); Bilirubin Direct 0.2 mg/dL (0.0-0.5); Bilirubin Total 0.5 mg/dL (0.0-1.0); Blood Urea Nitrogen 11 mg/dL (9-16); Calcium 9.2 mg/dL (8.4-10.2); Carbon Dioxide 24 mmol/L (22-29); Chloride 105 mmol/L (96-108); Cholesterol 155 mg/dL (<200); Estimated Glomerular Filt Rate > 60; Glucose Random 99 mg/dL (60-115); HDL Cholesterol 44 mg/dL (>40); LDL Cholesterol Calculated 91 mg/dL (<100); Potassium 4.1 mmol/L (3.3-5.1); Sodium 136 mmol/L (135-145); Total Protein 6.9 g/dL (6.5-8.0); Triglycerides 104 mg/dL (<150)
== END 2024-09-18 10:10 | disposition home or self-care (01) ==
LOC: HO.10HDL 10:09
PROVIDERS: Visit Provider Physician Assistant
DX: F32.9 Major depressive disorder, single episode, unspecified (principal); B00.9 Herpesviral infection, unspecified; L03.019 Cellulitis of unspecified finger
CPT/HCPCS: 36415; 80048; 80061; 80076; 85025

== ENCOUNTER 2025-01-23 08:47 | Outpatient (AMB) | payer OTHER, SELFPAY ==
[2025-01-23 08:52] VITALS: BP 136/66; PULSE 74; O2SAT 97; BMI 43.3
--- NOTE | 2025-01-23 08:52 | A.OFFVIS_ITS ---
Vital Signs 01/23/25 08:52 Height 4 ft 10 in Weight 207 lb BMI 43.3 BP 136/66 Blood Pressure Location Rt brachial Position Sitting Pulse 74 Pulse Source Pulse Oximeter Pulse Oximetry (%) 97 Oxygen Delivery Method Room Air Intake Visit Reasons: screening for lipoid disorders Intake Note: New pt for initial eval of abn labs + discuss colo. CC: Pt denies any GI sx or concerns at this time. No pertinent FMHx per pt. No pertinent surgical hx. Stator Tester Required: No Accompanied by: Self / Same As Patient Allergies egg (EGG) Allergy (Unknown, Verified 01/23/25 08:52) VOMITTING Penicillins (PENICILLINS) Allergy (Unknown, Verified 01/23/25 08:52) RASH HPI HPI screening for lipoid disorders: Details: 49 year old? female with past medical history of depression, HSV-1, cyrus menopausal, smoking, and anxiety is here today for pre colonoscopy screening.? Patient was sent to us by her PCP.? This is her first colonoscopy screening.? Patient denies any gastrointestinal symptoms in the past or at present.? Denies any personal or family history of gastrointestinal disease, colon polyps, or CRC. Patient was also sent for evaluating transaminitis. Patient does not believe she had any anesthesia in the past.? Negative for history of sleep apnea.? Denies any history of cardiac, renal, pulmonary, or hepatic disease.?? No history of infectious? diseases like hepatitis A, B, C, HIV or tuberculosis.? Patient is not on any anticoagulation PFSH Medical History Low vitamin D level Major depressive disorder HSV-1 (herpes simplex virus 1) infection Smoking Seasonal allergies Herpes History of anxiety Surgical History Hx of tubal ligation Family History Family/Other History of breast cancer Maternal Aunt Breast cancer Social History Household Members: Children Household Members Other:: living with 1 son Alcohol intake: never Patient Tobacco Use Status: Current someday Tobacco user Sexual orientation: Straight/Heterosexual Gender identity: Female Female Reproductive History Menstrual Age of Menarche: 17 Review of Systems Const Denies weight gain and Denies weight loss ENT Reports no additional complaints, Denies dysphagia and Denies odynophagia Card Reports no additional complaints Resp Reports no additional complaints GI Denies abdominal pain, Denies belching, Denies melena, Denies bloating, Denies change in bowel habits, Denies dysphagia, Denies excessive flatus, Denies dyspepsia, Denies heartburn, Denies diarrhea, Denies loose stools, Denies na usea, Denies odynophagia and Denies vomiting Musc Reports no additional complaints Neuro Reports no additional complaints Psych Reports no additional complaints Endo Reports no additional complaints Physical Exam Vital Signs: Last Vital Signs Pulse 74 01/23/25 08:52 BP 136/66 01/23/25 08:52 Pulse Ox 97 01/23/25 08:52 Oxygen Delivery Method Room Air 01/23/25 08:52 BMI result Body Mass Index 43.3 Const General: healthy appearing and no acute distress Nutritional Appearance: obese Orientation/consciousness: patient oriented x3 Resp Effort & Inspection: normal respiratory effort, able to speak in complete sentences, no tracheal deviation and symmetric chest movement Auscultation: clear to auscultation bilaterally Cardio Rate: regular rate GI Inspection: Yes normal to inspection, No distended and Yes obesity Palpation (GI): Soft to palpation, not firm, nontender and No hepatosplenomegaly present Auscultation: normal bowel sounds General: Yes no CVA tenderness Back/Spine/Pelvis Back: no CVA tenderness Skin General skin exam: elasticity normal, turgor normal and dry skin Neuro General: patient oriented x3 Psych Appearance: grossly normal Mental Status: mental status grossly normal Results Reviewed Results Reviewed: Laboratory Tests 09/18/24 10:15 AST 33 H ALT 36 H Alkaline Phosphatase 138 H Albumin 4.0 Assessment & Plan Assessment & Plan (1) Screen for colon cancer: Code(s): Z12.11 - Encounter for screening for malignant neoplasm of colon (2) Transaminitis: Code(s): R74.01 - Elevation of levels of liver transaminase levels Plan Patient denies any GI, cardiac or respiratory symptoms.? We will send her for repeat of the liver panel and ultrasound with liver elastography. Never had any anesthesia in the past.? Denies any history of sleep apnea.? No history infectious diseases in the past or present.? Not on any anticoagulation therapy.? No family or personal history of colon cancer or polyps.? Patient denies melena, hematochezia, unintentional weight loss or ribbon like stools.? Discussed at length the pre-procedure,? prep, diet & medications as well as what to expect prior, during and after the procedure.?? Stressed the importance of good bowel prep.? Recommended the use of Vaseline or Calmoseptine OTC & baby wipes with bowel movements to promote comfort.? ?Patient verbalizes understanding and agrees to plan of care.? She was given the opportunity to ask questions and all questions answered.? We will see her after the procedure.? Orders: Orders US abdomen comp w elastography 01/23/25 R79.89 - Other specified abnormal findings of blood chemistry Liver Panel 01/23/25 R74.01 - Elevation of levels of liver transaminase levels Referrals GI Procedure Notification Z12.11 - Encounter for screening for malignant neoplasm of colon Medications: New bisacodyl (Dulcolax (bisacodyl)) take 4 tabs at noon the day before your colonoscopy 20 mg (4 x 5 mg) PO ONCE 4 tabs 0RF constipation 1 day Z12.11 - Encounter for screening for malignant neoplasm of colon polyethylene glycol 3350 (Miralax) As directed by gastroenterology department at [facility] 238 grams PO ONCE 238 grams 0RF Z12.11 - Encounter for screening for malignant neoplasm of colon Coding Level of Care Code New Pt Level 4 (52539) Diagnoses Screen for colon cancer Z12.11 Transaminitis R74.01 Time Spent (min) 45 Comment 35 minutes spent with patient and additional 10 minutes spent reviewing her records
== END 2025-01-23 09:25 | disposition home or self-care (01) ==
LOC: HO.HGI 08:48
PROVIDERS: PCP Internal Medicine; Visit Provider Nurse Practitioner Family
DX: Z01.818 Encounter for other preprocedural examination (principal); Z12.11 Encounter for screening for malignant neoplasm of colon; R74.01 Elevation of levels of liver transaminase levels
CPT/HCPCS: 99024

== ENCOUNTER 2025-01-23 08:47 | Outpatient (REF) | payer OTHER, SELFPAY ==
[2025-01-23 11:16] LABS: Alanine Aminotransferase 26 U/L (0-31); Albumin Level 4.1 g/dL (3.5-5.0); Alkaline Phosphatase 141 U/L (39-117); Aspartate Amino Transferase 26 U/L (5-31); Total Protein 7.0 g/dL (6.5-8.0)
== END 2025-01-23 08:48 | disposition home or self-care (01) ==
LOC: HO.LAB 08:47
PROVIDERS: PCP Physician Assistant; Visit Provider Nurse Practitioner Family
DX: Z01.818 Encounter for other preprocedural examination (principal); R74.01 Elevation of levels of liver transaminase levels
CPT/HCPCS: 36415; 80076; 99212

== ENCOUNTER 2025-03-19 10:34 | Outpatient (AMB) | payer OTHER, SELFPAY ==
--- NOTE | 2025-03-19 10:38 | A.OFFPC_ITS ---
Vital Signs 03/19/25 10:47 Height 4 ft 10.66 in Weight 95.254 kg BMI 42.9 BP 108/78 Blood Pressure Location Rt brachial Position Sitting Respiration 18 Pulse 78 Pulse Source Pulse Oximeter Temp 97.8 F Temp Source Temporal Artery Scan Pulse Oximetry (%) 97 Oxygen Delivery Method Room Air Intake Visit Reasons: 6 Month F/U Brass Roller Required: No Accompanied by: Self / Same As Patient Allergies egg (EGG) Allergy (Unknown, Verified 03/19/25 10:39) VOMITTING Penicillins (PENICILLINS) Allergy (Unknown, Verified 03/19/25 10:39) RASH Medication List - Last Reconciled 03/19/25 by ADRYAN Arellano bisacodyl (Dulcolax (bisacodyl)) 20 mg (4 x 5 mg) PO ONCE 1 day Brace,wrist (Wrist Brace - one) L thumb wrist splint- use as needed for L wrist pain bupropion HCl SR 150 mg PO BID cholecalciferol (vitamin D3) 25 mcg PO DAILY fluconazole 150 mg PO Q3D 2 doses ibuprofen 600 mg PO Q6H PRN loratadine 10 mg PO DAILY paroxetine HCl 20 mg PO DAILY polyethylene glycol 3350 (Miralax) 238 grams PO ONCE valacyclovir Take 4 tabs twice daily as needed for outbreak orally; Tobacco use date assessed: 03/19/25 Dental Screening Dental Screen Date: 03/19/25 Did you have a dental visit in the last 12 months?: No Did you have a dental problem in the last 6 months where you did not have access to dental care?: No Was dental information given to patient?: Patient declined HPI HPI Comments History of Present Illness Details 48-year-old female with history of cereb ellar pontine atrophy, major depressive disorder with anxiety, HSV 1, and class 3 obesity presents to the office today accompanied by N worker, Adenike, for management of chronic conditions and to establish care. She has several complaints today. She reports she has recurrent episodes of inflammation and purulence of the right middle fingernail. She has required antibiotics for this in the past. She does endorse picking at her fingernails often. She also states that she does not typically finish the antibiotic course that has been prescribed. She is also reporting pain over the radial aspect of the left wrist into the thumb. States this worsens when lifting grocery bags. No swelling or erythema. Her [facility] worker states that she has felt like her skin has been yellowish. The patient denies any right upper q uadrant pain, nausea, vomiting no bleeding. No known history of liver disease. Major depressive disorder with anxiety- some compulsive tendencies. Has [facility] disease case manager. Has a psychiatrist and therapy at [facility]. No SI/HI. Compliant with bupropion, BuSpar, paroxetine (recently increased to 20mg daily). Overall, reports symptoms are well managed. Using light therapy as well which helps with the anxiety. HSV-1 - no recent outbreak. Has valtrex PRN but occurs twice a month. Chronic low back pain- using back massager Class III obesity- walks often for exercise. Eating well overall. Interested in medical parasitologist Concerns: Vulvovaginal pruritis with thick vaginal discharge. Follows with WEB MANAGER, last seen 05/2024 Urinary frequency x2 week Health Maintenance: Pap UTD, follows with [facility] robotics technician Colonscopy scheduled 03/26 Mammo 07/17, scheduled for 06/20 General: No fevers, malaise, unintentional weight loss Cardiovascular: No chest pain, palpitations, or leg edema Respiratory: No shortness of breath, wheezing, cough GI: No abdominal pain, nausea, vomiting. see hpi MSK: see hpi Neuro: No headaches, weakness, paresthesias Skin: see hpi Constitutional - Awake and Alert, No apparent distress Eyes - PERRLA, EOMI Cardiovascular - S1S2, RRR, No edema Respiratory - Normal lung expansion, Normal respiratory effort, No respiratory distress, CTA bilaterally Gastrointestinal - NT / ND; +BS; No rebound or guarding Extremities - no calf tenderness bilaterally, no swelling Musculoskeletal - no bony abnormalities. No swelling, erythema, warmth. Tenderness to palpation along the radial aspect of the left wrist. Positive Gary test. Full ROM L thumb and wrist Skin - Warm/Dry Neurological - Alert & oriented x3 Psychological - Appropriate affect [facility] Medical History (Updated 03/19/25 @ 11:14 by ADRYAN Arellano) Anxiety Morbid obesity due to excess calories Low vitamin D level Major depressive disorder HSV-1 (herpes simplex virus 1) infection Seasonal allergies Herpes History of anxiety Surgical History Hx of tubal ligation Family History Family/Other History of breast cancer Maternal Aunt Breast cancer Social History Household Members: Children Household Members Other:: living with 1 son Housing: House Alcohol intake: never Patient Tobacco Use Status: Never used Tobacco e-Cigarette/Vaping Use: Never Used service: No Current occupational status: disabled Sexual orientation: Straight/Heterosexual Gender identity: Female Female Reproductive History Menstrual Age of Menarche: 17 Questionnaire PHQ-9 Over the last 2 weeks, how often have you been bothered by any of the following problems? 1. Little interest or pleasure in doing things: several days 2. Feeling down, depressed, or hopeless: several days 3. Trouble falling or staying asleep, or sleeping too much: several days 4. Feeling tired or having little energy: several days 5. Poor appetite or overeating: not at all 6. Feeling bad about yourself - or that you are a failure or have let yourself or your family down: several days 7. Trouble concentrating on things, such as reading the newspaper or watching television: several days 8. Moving or speaking so slowly that other people could have noticed. Or the opposite - being so fidgety or restless that you have been moving around a lot more than usual: not at all 9. Thoughts that you would be better off or of hurting yourself in some way: not at all Total score: 6 Source: Developed by Drs. Petey Gorman, Eva Combs, Bartolo Martins and colleagues, with an educational neva from [employer]. Thrive Questionnaire Date Thrive assessed: 03/19/25 I am a: Patient What is your living situation today?: I have a steady place to live Within the past 12 months, did the food you bought not last and you didn't have the money to get more?: Never true Within the past 12 months, did you worry whether your food would run out before you got money to buy more?: Never true Do you have trouble paying for medicines?: No Do you have trouble getting transportation to medical appointments?: No Do you have trouble paying your heating and electricity bill?: Yes Do you have trouble taking care of your child, family member or friend?: No Do you have trouble with day-to-day activities such as bathing, preparing meals, shopping, managing finances, etc.?: Yes Are you currently unemployed and looking for a job?: Yes Are you interested in more education?: No THRIVE Score: 1 AUDIT C Alcohol Use Questionnaire (AUDIT-C) 1. How often do you have a drink containing alcohol?: Never 3. How often do you have six or more drinks on one occasion?: Never Total Score: 0 PETROS-7 AMB Questionnaire PETROS-7 Date PETROS - 7 assessed: 03/19/25 Feeling nervous, anxious, or on edge: 1 = Several days Not being able to stop or control worryin = Several days Worrying too much about different things: 1 = Several days Trouble relaxin = Several days Being so restless that it is hard to sit still: 0 = Not at all Becoming easily annoyed or irritable: 1 = Several days Feeling afraid as if something awful might happen: 0 = Not at all Total PETROS-7 score (0-4 normal; 5-9 mild; 10-14 moderate; 15-21 severe): 5 Source: Developed by Drs. Petey Gorman, Eva Combs, Bartolo Martins and colleagues, with an educational neva from [employer]. Physical exam (Primary Care) Vital Signs: Last Vital Signs Temp 97.8 F 03/19/25 10:47 Pulse 78 03/19/25 10:47 Resp 18 03/19/25 10:47 BP 108/78 03/19/25 10:47 Pulse Ox 97 03/19/25 10:47 Oxygen Delivery Method Room Air 03/19/25 10:47 BMI result Body Mass Index 42.9 Tobacco/Smoking Status: Tobacco use Status Tobacco use date assessed 03/19/25 03/19/25 10:41 Patient Tobacco Use Status Never used Tobacco 03/19/25 10:49 e-Cigarette/Vaping Use Never Used 03/19/25 10:49 PHQ-9: PHQ-9 Score PHQ-9: Total score 6 03/19/25 10:57 Thrive Assessment: Date of Thrive Assessment Date Thrive assessed 03/19/25 03/19/25 10:53 Coding Level of Care Code Est Pt Level 4 (18673) Diagnoses HSV-1 (herpes simplex virus 1) infection B00.9 Vulvovaginal pruritus L29.2 Anxiety F41.9 Morbid obesity due to excess calories E66.01 Assessment & Plan Assessment & Plan (1) HSV-1 (herpes simplex virus 1) infection: Code(s): B00.9 - Herpesviral infection, unspecified Category: Medical Plan: Continue valtrex prn (2) Vulvovaginal pruritus: Code(s): L29.2 - Pruritus vulvae Category: Medical Plan: Possible candidiasis. Trial fluconazole. Advised to schedule appt with robotics technician (3) Anxiety: Code(s): F41.9 - Anxiety disorder, unspecified Category: Medical Plan: Stable. Continue following with Psychiatry/counseling. Continue medications as prescribed. (4) Morbid obesity due to excess calories: Code(s): E66.01 - Morbid (severe) obesity due to excess calories Category: Medical Plan: Referred to dietitian. Increase protein, fruits, vegetables. Limit refined sugars, simple carbs, highly processed fors. 150m moderate intensity exercise weekly Plan Follow-up in 6 months Orders: Orders UA CC w/rflx Micro + Cult Today R39.15 - Urgency of urination Referrals Table As[employer] Referral B00.9 - Herpesviral infection, unspecified, E66.01 - Morbid (severe) obesity due to excess calories, F32.9 - Major depressive disorder, single episode, unspecified, F41.9 - Anxiety disorder, unspecified, L29.2 - Pruritus vulvae, R39.15 - Urgency of urination Medications: New fluconazole Take 1 tab today. If symptoms are still present after 3 days may repeat dose once 150 mg PO Q3D 2 tabs 0RF 2 doses Refilled bupropion HCl SR 150 mg PO BID 180 tabs 1RF Patient Instructions: Call [facility] gyncecology to evaluate vaginal itchy ongoing years [phone]
[2025-03-19 10:47] VITALS: BP 108/78; PULSE 78; RESP 18; TEMP 36.6; O2SAT 97; BMI 42.9
== END 2025-03-19 11:18 | disposition home or self-care (01) ==
LOC: HO.HMCHD 10:35
PROVIDERS: PCP Physician Assistant; Visit Provider Physician Assistant
DX: B00.9 Herpesviral infection, unspecified (principal); L29.2 Pruritus vulvae; F41.9 Anxiety disorder, unspecified; E66.01 Morbid (severe) obesity due to excess calories

== ENCOUNTER → 2025-03-19 10:34 | Outpatient (BNVA) | payer OTHER, SELFPAY | PROVIDERS: PCP Physician Assistant; Visit Provider Physician Assistant | DX: L29.2 Pruritus vulvae (principal); B00.9 Herpesviral infection, unspecified; F41.9 Anxiety disorder, unspecified; E66.01 Morbid (severe) obesity due to excess calories; Z68.42 Body mass index [BMI] 45.0-49.9, adult | CPT/HCPCS: 99212 ==

== ENCOUNTER 2025-03-19 11:26 | Outpatient (REF) | payer OTHER, SELFPAY ==
[2025-03-19 13:12] LABS: Appearance Urine Clear; Glucose Urine UA Negative (Negative); PH 5.5 (5.0-9.0); Specific Gravity - Urine 1.020 (1.005-1.025); UMIC TRIGGER UACC YES
[2025-03-19 13:16] LABS: UACC Culture Trigger YES
== END 2025-03-19 11:27 | disposition home or self-care (01) ==
LOC: HO.10HDLNP 11:26
PROVIDERS: Visit Provider Physician Assistant
DX: R39.15 Urgency of urination (principal)
CPT/HCPCS: 81001; 87086

== ENCOUNTER 2025-03-26 06:15 | Day surgery (SDC) | payer OTHER, SELFPAY ==
--- NOTE | 2025-03-20 11:36 | HO.ANESPROP2 ---
Documented by User: Hailey Noonan NP 03/20/25 11:37 HPI - Anesthesia Eval Consult details Narrative: 49yo F Colonoscopy PMFSH Active Problems Active Problems: All Active Problems Anxiety (Acute) Morbid obesity due to excess calories (Acute) Vulvovaginal pruritus (Acute) Urinary urgency (Acute) De Quervain's tenosynovitis, left (Acute) Low vitamin D level (Acute) Paronychia of finger (Acute) Major depressive disorder (Acute) HSV-1 (herpes simplex virus 1) infection (Acute) Perimenopause (Acute) Encounter for screening examination for sexually transmitted disease (Acute) Cervical cancer screening (Acute) Breast cancer screening (Acute) Encounter for annual routine gynecological examination (Acute) Past Medical History Medical History Anxiety Morbid obesity due to excess calories Low vitamin D level Major depressive disorder HSV-1 (herpes simplex virus 1) infection Seasonal allergies Herpes History of anxiety Family History Family History Family/Other History of breast cancer Maternal Aunt Breast cancer Surgical History Surgical History Hx of tubal ligation Social History Social History Household Members: Children Household Members Other:: living with 1 son Housing: House Alcohol intake: never Patient Tobacco Use Status: Never used Tobacco e-Cigarette/Vaping Use: Never Used Use of substances other than those prescribed or required for medical reasons: No Are you DNR?: No Advance Directives: No Advance Directives Information Provided: Yes service: No Current occupational status: disabled Sexual orientation: Straight/Heterosexual Gender identity: Female Meds Allergies Allergy/AdvReac Type Severity Reaction Status Date / Time egg (EGG) Allergy Unknown VOMITTING Verified 03/26/25 07:03 Penicillins (PENICILLINS) Allergy Unknown RASH Verified 03/26/25 07:03 Home Medications ?Medication ?Instructions ?Recorded ?Confirmed ?Last Taken ?Type loratadine 10 mg tablet 10 mg PO DAILY 01/15/21 03/26/25 Unknown History cholecalciferol (vitamin D3) 25 25 mcg PO DAILY 06/06/24 03/26/25 Unknown History mcg (1,000 unit) tablet paroxetine HCl 20 mg tablet 20 mg PO DAILY 03/19/25 03/26/25 Unknown History Assessment and Plan Assessment Anesthesia Assessment: Chart Reviewed Documented by User: Robert Briscoe MD 03/26/25 08:39 PMFSH Past Medical History Medical History Anxiety Morbid obesity due to excess calories Low vitamin D level Major depressive disorder HSV-1 (herpes simplex virus 1) infection Seasonal allergies Herpes History of anxiety Family History Family History Family/Other History of breast cancer Maternal Aunt Breast cancer Family history of problems with anesthesia: No Surgical History Surgical History Hx of tubal ligation History of Problems with Anesthesia: No Social History Social History Household Members: Children Household Members Other:: living with 1 son Housing: House Alcohol intake: never Patient Tobacco Use Status: Never used Tobacco e-Cigarette/Vaping Use: Never Used Use of substances other than those prescribed or required for medical reasons: No Are you DNR?: No Advance Directives: No Advance Directives Information Provided: Yes service: No Current occupational status: disabled Sexual orientation: Straight/Heterosexual Gender identity: Female Meds Allergies Allergy/AdvReac Type Severity Reaction Status Date / Time egg (EGG) Allergy Unknown VOMITTING Verified 03/26/25 07:03 Penicillins (PENICILLINS) Allergy Unknown RASH Verified 03/26/25 07:03 Home Medications ?Medication ?Instructions ?Recorded ?Confirmed ?Last Taken ?Type loratadine 10 mg tablet 10 mg PO DAILY 01/15/21 03/26/25 Unknown History cholecalciferol (vitamin D3) 25 25 mcg PO DAILY 06/06/24 03/26/25 Unknown History mcg (1,000 unit) tablet paroxetine HCl 20 mg tablet 20 mg PO DAILY 03/19/25 03/26/25 Unknown History Exam Airway Mallampati Class: II TM Dist: >3cm Neck ROM: Full Loose/Missing/Broken Teeth: Yes Assessment and Plan Assessment Anesthesia Assessment: Anesthesia Plan Discussed and Chart Reviewed Final Anesthetic Review Family History of Problems with Anesthesia: No History of Problems with Anesthesia: No NPO: Yes ASA Class: III Final Preanesthetic Review: No Changes in Pt Med Stat, Meds/Allgs Chart Reviewed, Consent Obtained/Reviewed and Anes Risks/Benef Reviewed Patient Risk: Intermediate Procedure Risk: Low Anesthetic Plan Anesthetic Plan: MAC: Disposition: Standard PACU
[2025-03-20 14:38] VITALS: BMI 43.3
[2025-03-26 06:56] VITALS: BMI 42.6
[2025-03-26 07:11] VITALS: BP 105/66; PULSE 63; RESP 15; TEMP 36.5; O2SAT 97
[2025-03-26] MEDS: Lactated Ringers 1,000 ML 100 ML IVCONT (07:21)
--- NOTE | 2025-03-26 07:46 | MHC.SHP ---
Pre-Procedural Eval Section A - 24 Hr Update-Section A only Date of Service: 03/26/25 Section B - Complete if H&P > 30 days Chief Complaint: screening Details of Present Illness: Low vitamin D level Major depressive disorder HSV-1 (herpes simplex virus 1) infection Smoking Seasonal allergies Herpes History of anxiety Surgical History Hx of tubal ligation Present Medications: see Short Stay Collaborative assessment Allergies: Allergies Allergy/AdvReac Type Severity Reaction Status Date / Time egg (EGG) Allergy Unknown VOMITTING Verified 03/26/25 07:03 Penicillins (PENICILLINS) Allergy Unknown RASH Verified 03/26/25 07:03 Review of Systems Review of Systems Comment: Ten point ROS negative Exam Exam Comment: Gen appear: No acute distress HEENT: no icterus Chest: No overt resp distress Abd: soft, nontender, nondistended Psych: Stable affect, answering questions appropriately Neuro: A/Ox3 noted to move all extremities spontaneously Ext: no peripheral edema Plan Diagnosis/Plan: Unchanged I have reviewed the history and physical and performed a pertinent physical examination on my patient. No changes have occurred unless specified. Time Spent With Patient Time: Total time managing care of this patient today ____ minutes.
--- NOTE | 2025-03-26 08:50 | P.OPN-COLO_ITS ---
Colonoscopy Operative Note Operative Note Date of Service: 03/26/25 Narrative: Procedure: Colonoscopy Indication: Screening Endoscopist: Cris Baltazar MD Anesthesia Provider: Dr Robert Briscoe Anesthesia type: MAC Instrument: Olympus [id number]-[id number] Consent: Indication, risks vs benefits, and alternatives were discussed with the patient who gave written informed consent to proceed. EKG, pulse, pulse oximetry and blood pressure were monitored throughout the procedure. Please see anesthesia flowsheet. Procedure: An abdominal binder was affixed to the lower abdomen. The patient was brought to the procedure room and placed in the left lateral decubitus position. IV medications were administered by the anesthesia provider in attendance. A digital rectal exam was performed which was normal. A distal attachment cap was affixed to the tip of the colonoscope which was then inserted through the anus and advanced through the colon to the cecum at 75 cm,and terminal ileum. Appendiceal orifice and ileocecal valve were identified. Mucosa was carefully examined under high definition white light as the instrument was slowly withdrawn in a retrograde panoramic fashion. Retroflexion was performed in rectum. The procedure was not difficult. There were no immediate obvious complications. The quality of the prep was BBPS: 3+3+2 = adequate Withdrawal time 11 minutes. Limitations: No limitations. Findings: Mucosa: Normal to cecum and terminal ileum. Protruding lesions: * 1 sessile polyp of size 8 mm in transverse colon. Cold snare polypectomy was performed. The polyp was completely removed and retrieved. * Medium internal hemorrhoids without stigmata of recent bleeding. Excavated lesions: * Moderate diverticulosis of left sided colon. Impression: 1. Normal colon mucosa 2. Total of 1 polyp removed 3. Diverticulosis 4. Internal hemorrhoids Recommendations: - Follow path results. - Repeat colonoscopy in 7 years if the polyp is an adenoma.
[2025-03-26 08:55] VITALS: BP 106/56; PULSE 68; RESP 16; TEMP 36.6; O2SAT 96
[2025-03-26 09:00] VITALS: BP 99/63; PULSE 68; RESP 16; O2SAT 97
[2025-03-26 09:12] VITALS: BP 118/74; PULSE 62; RESP 16; O2SAT 98
== END 2025-03-26 09:53 | disposition home or self-care (01) ==
PROVIDERS: PCP Physician Assistant; Visit Provider Internal Medicine
PROC: 0DJD8ZZ Inspection of Lower Intestinal Tract, Via Natural or Artificial Opening Endoscopic (ICD-10-PCS; CPT 45378; principal; 2025-03-26 08:10)
DX: Z12.11 Encounter for screening for malignant neoplasm of colon (principal); K64.8 Other hemorrhoids; K57.30 Diverticulosis of large intestine without perforation or abscess without bleeding; D12.3 Benign neoplasm of transverse colon
CPT/HCPCS: 45385; 88305; J2003; J2704

== ENCOUNTER → 2025-03-26 06:15 | Outpatient (BNV) | payer OTHER, SELFPAY | PROVIDERS: PCP Physician Assistant; Visit Provider Internal Medicine | DX: Z12.11 Encounter for screening for malignant neoplasm of colon (principal); K63.5 Polyp of colon; K57.90 Diverticulosis of intestine, part unspecified, without perforation or abscess without bleeding; K64.8 Other hemorrhoids | CPT/HCPCS: 45385 ==